=== PATIENT | female | born 1980 | race Caucasian/White ===

== ENCOUNTER 2017-07-19 16:18 | Emergency (ER) | payer MEDICARE, OTHER ==
--- NOTE | 2017-07-19 16:28 | PDOC ---
Rapid Medical Evaluation Time Seen by Provider: 07/19/17 16:23 Medical Evaluation: 07/19/17 16:23 I have performed a brief in-person evaluation of this patient. The patient presents with a chief complaint of: L knee pain/swelling x 2 days. No trauma, f/c. 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 On oxycodone for chronic LBP Pertinent physical exam findings: moderate swelling to L knee, worse w/ ROM, nmo hot, red joint, unable to bear weight I have ordered the following:XR/labs The patient will proceed to the ED for further evaluation. 07/19/17 16:29
[2017-07-19 16:33] VITALS: BP 158/111; PULSE 113; TEMP 98.2; BMI 31.4
[2017-07-19 17:17] LABS: BASO % 0.5 % (0-2.0); EOS % 2.1 % (0-4.5); HEMATOCRIT 43.7 % (32.4-45.2); HEMOGLOBIN 14.7 GM/dL (10.7-15.3); LYMPH % 24.2 % (8-40); MCHC 33.6 g/dl (32.0-36.0); MEAN CELL VOLUME 92.2 fl (80-96); MEAN PLT VOLUME 6.5 fl (7.5-11.1); MONO % 5.5 % (3.8-10.2); NEUT % 67.7 % (42.8-82.8); PLATELET COUNT 307 K/MM3 (134-434); RBC 4.74 M/mm3 (3.60-5.2); RDW 12.4 % (11.6-15.6); WHITE BLOOD COUNT 12.8 K/mm3 (4.0-10.0)
[2017-07-19 18:17] LABS: ALBUMIN 3.8 g/dl (3.4-5.0); ALK PHOS 67 U/L (45-117); ANION GAP 9 (8-16); BILIRUBIN,TOTAL 0.3 mg/dL (0.2-1.0); BLOOD UREA NITROGEN 17 mg/dL (7-18); CALCIUM 9.3 mg/dL (8.5-10.1); CHLORIDE 104 mmol/L (98-107); CO2 27 mmol/L (21-32); CREATININE 0.9 mg/dL (0.55-1.02); GLUCOSE,RANDOM 83 mg/dL (74-106); POTASSIUM 3.8 mmol/L (3.5-5.1); SGOT/AST 16 U/L (15-37); SGPT/ALT 49 U/L (12-78); SODIUM 140 mmol/L (136-145); TOT PROT 7.9 g/dl (6.4-8.2)
== END 2017-07-19 19:59 | disposition left against medical advice (07) ==
LOC: JER 16:18
DX: M25.562 Pain in left knee (principal); M54.5 Low back pain; G89.29 Other chronic pain
CPT/HCPCS: 36415; 73560-TC-LT; 80053; 84550; 84703; 85025; 85651; 86140; 99281-25

== ENCOUNTER 2017-07-20 12:31 | Emergency (ER) | payer MEDICARE ==
[2017-07-20 12:44] VITALS: BP 160/91; PULSE 94; TEMP 98.7; BMI 35.9
[2017-07-20] MEDS ORDERED: KETOROLAC TROMETHAMINE 60 MG/2 ML VIAL ONE (15:15)
--- NOTE | 2017-07-20 15:15 | PDOC ---
History of Present Illness - General Chief Complaint: Pain Stated Complaint: REVISIT/ LT KNEE PAIN Time Seen by Provider: 07/20/17 14:51 History Source: Patient, Family Exam Limitations: No Limitations - History of Present Illness Initial Comments: 07/20/17 15:17 Patient return to emergency department from ER triage yesterday. Came for left knee swelling and pain. Was triaged, had bloods drawn and an x-ray performed but patient states weight after 5 hours became excessive and she left without further medical evaluation. Returned today to complete evaluation. 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 But over the past few days has had worsening onset of swelling to her left knee and pain to her calf. States is primarily immobilized secondary to significant back injury and peripheral nerve damage but denies any recent prolonged travel, or exercise change. Denies fever, heat or warmth to leg or evidence of infection. Has never had a DVT but admits that her activity is progressively worsening to more of a sedentary lifestyle due to her chronic back pain and peripheral neuropathy to her left leg Occurred: reports: yesterday Pain Location: reports: none, lower extremity (left knee) Modifying Factors: improves with: pain medication Loss of Consciousness: no loss of consciousness Past History - Travel Traveled outside of the country in the last 30 days: No Close contact w/someone who was outside of country & ill: No - Past Medical History Allergies/Adverse Reactions: Allergies Allergy/AdvReac Type Severity Reaction Status Date / Time latex Allergy Verified 07/20/17 12:40 Home Medications: Ambulatory Orders Diazepam [Valium] 5 mg PO Q8H 07/20/17 Lorazepam [Ativan] 2 mg PO ASDIR 07/20/17 Oxycodone HCl/Acetaminophen [Oxycodone-Acetaminophen 10-325] 1 each PO TID 07/20 Sertraline HCl [Zoloft -] 25 mg PO ASDIR 07/20/17 Zolpidem Tartrate [Ambien] 5 mg PO ASDIR 07/20/17 COPD: No - Suicide/Smoking/Psychosocial Hx Smoking History: Current some day smoker Number of Cigarettes Smoked Daily: 1 Information on smoking cessation initiated: No Hx Alcohol Use: No Drug/Substance Use Hx: No Substance Use Type: None Review of Systems - Review of Systems Able to Perform ROS?: Yes Is the patient limited [place] proficient: Yes Constitutional: Yes: Symptoms Reported, See HPI, Malaise. No: Fever, Loss of Appetite HEENTM: Yes: See HPI. No: Symptoms Reported Respiratory: Yes: See HPI. No: Symptoms reported Musculoskeletal: Yes: Symptoms Reported, See HPI, Joint Swelling, Muscle Pain Neurological: Yes: Symptoms reported All Other Systems: Reviewed and Negative *Physical Exam - Vital Signs Last Vital Signs Temp Pulse Resp BP Pulse Ox 98.7 F 94 H 18 160/91 99 07/20/17 12:39 07/20/17 12:39 07/20/17 12:39 07/20/17 12:39 07/20/17 12:39 - Physical Exam General Appearance: Yes: Nourished, Appropriately Dressed, Apparent Distress, Mild Distress HEENT: positive: SHAD, Normal ENT Inspection, Normal Voice, TMs Normal, Pharynx Normal Neck: positive: Supple Respiratory/Chest: positive: Lungs Clear Musculoskeletal: positive: Normal Inspection. negative: CVA Tenderness Extremity: positive: Normal Capillary Refill, Normal Inspection, Normal Range of Motion, Tender, Swelling (left leg, with some swelling noted from superior knee to knee joint and down into calf. 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 Patient has no diagnosis of any inflammatory disease however has chronic pain issues with peripheral neuropathy status post back surgery. X-ray of knee doesn't reveal any bony pathology but notes the inflammation and fluid around joint. Due to calf tenderness and patient's immobility will obtain ultrasound to rule out DVT , provide Toradol for anti-inflammatory and pain purpose . Medical Decision Making - Medical Decision Making 07/20/17 16:32 Patient states feels moderately improved after Toradol injection, ultrasound negative for deep vein thrombosis. Patient will follow up as scheduled with Dr. Pritchett on Tuesday for orthopedic evaluation of left knee swelling and tenderness. Given an Josh wrap, and encouraged to continue with her pain medication *DC/Admit/Observation/Transfer Diagnosis at time of Disposition: Knee pain - Discharge Dispostion Disposition: HOME Condition at time of disposition: Stable Admit: No - Referrals Referrals: René Pritchett MD [Staff Physician] - - Patient Instructions Printed Discharge Instructions: DI for Knee Pain Additional Instructions: Rest, ice to area on and off for 15 minutes 4-6 times a day Avoid heavy lifting or exercise until pain and swelling is resolved or until further directed Keep area highly elevated to reduce swelling Use splints/Josh wrap as directed Followup with orthopedist in one to 2 days if not improving, if significantly improved may wait one week for followup with orthopedist May use ibuprofen 2-200 mg tablets every 6 hours as needed for pain - Post Discharge Activity
[2017-07-20] MEDS ORDERED: KETOROLAC TROMETHAMINE 60 MG/2 ML VIAL IM ONE (15:16)
== END 2017-07-20 16:44 | disposition home or self-care (01) ==
LOC: JERFT 12:31
PROC: 3E0233Z Introduction of Anti-inflammatory into Muscle, Percutaneous Approach (ICD-10-PCS; principal; 2017-07-20)
DX: M79.662 Pain in left lower leg (principal); M25.562 Pain in left knee; G62.89 Other specified polyneuropathies; G89.29 Other chronic pain
CPT/HCPCS: 93971-TC; 99281-25